=== PATIENT | female | born 1990 | race Caucasian/White ===

== ENCOUNTER 2020-02-10 06:40 | Emergency (ER) | payer MEDICAID ==
[2020-02-10 06:45] VITALS: RESP 18
[2020-02-10] MEDS ORDERED: SODIUM CHLORIDE 0.9% 1,000 ML IV STA (07:11)
[2020-02-10] MEDS ORDERED: SODIUM CHLORIDE 0.9% 1,000 ML IV SCH (07:15)
--- NOTE | 2020-02-10 07:15 | ED ---
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 She reports that she had episode of chest pain today and was feeling lightheaded. She reports that she drank juice and had taken her blood pressure. Patient is 160/100 and then 159/100. She reports that the chest pain seemed to subside somewhat at this time. She does complain of feeling lightheaded. She went some numbness and tingling in bilateral upper extremities. - Related Data Home Medications Medication Instructions Recorded Confirmed No Known Home Medications 02/10/20 02/10/20 Allergies Allergy/AdvReac Type Severity Reaction Status Date / Time No Known Allergies Allergy Verified 02/10/20 08:16 Review of Systems ROS Statement: Those systems with pertinent positive or pertinent negative responses have been documented in the HPI. ROS Other: All systems not noted in ROS Statement are negative. Past Medical History Past Medical History: No Reported History History of Any Multi-Drug Resistant Organisms: None Reported Past Surgical History: No Surgical Hx Reported Past Psychological History: No Psychological Hx Reported Smoking Status: Never smoker Past Alcohol Use History: Rare Past Drug Use History: None Reported General Exam - General Exam Comments Initial Comments: 29 year old female, no distress. Limitations: no limitations General appearance: alert, in no apparent distress Head exam: Present: atraumatic, normocephalic, normal inspection Eye exam: Present: normal appearance, PERRL, EOMI. Absent: scleral icterus, conjunctival injection, periorbital swelling ENT exam: Present: normal exam, mucous membranes moist Neck exam: Present: normal inspection. Absent: tenderness, meningismus, lymphadenopathy Respiratory exam: Present: normal lung sounds bilaterally Cardiovascular Exam: Present: regular rate, normal rhythm, normal heart sounds. Absent: systolic murmur, diastolic murmur, rubs, gallop, clicks GI/Abdominal exam: Present: soft, normal bowel sounds. Absent: distended, tenderness, guarding, rebound, rigid Extremities exam: Present: normal inspection, full ROM, normal capillary refill. Absent: tenderness, pedal edema, joint swelling, calf tenderness Back exam: Present: normal inspection Neurological exam: Present: alert, oriented X3, CN II-XII intact Psychiatric exam: Present: normal affect, normal mood Skin exam: Present: warm, dry, intact, normal color. Absent: rash Course Vital Signs 02/10/20 06:43 Temperature 98.1 F Pulse Rate 98 Respiratory 18 Rate Blood Pressure 146/90 O2 Sat by Pulse 100 Oximetry EKG Findings - EKG Comments: EKG Findings:: EKG performed at 6 7 AM shows sinus rhythm sinus arrhythmia. Normal EKG. Ventricular rate 79 bpm. NH interval is 134 ms. QRS duration is 84 ms. QT QTc is 396/454 ms. Medical Decision Making - Medical Decision Making 29-year-old female presents prescribed today with complaints of episodes of dizziness lightheadedness and occurring chest pain while she was at work today. Patient reports she has been under stress at home. She denies any known history of significant anxiety. Patient was given IV fluids labwork obtained. She has no acute neurological deficits. No murmurs lungs are clear to auscultation. Chest x-ray was reviewed and negative for acute process. Patient's labs reviewed and unremarkable. Including negative troponin and EKG was reviewed and unremarkable. Reevaluation she is resting comfortably in bed, heart rate montiror is NSR. Discussed using protonix and finishing fluid bolus. Disucssed pt to follow up with PCP. - Lab Data Result diagrams: 02/10/20 07:16 02/10/20 07:16 Lab Results 02/10/20 02/10/20 02/10/20 Range/Units 07:16 07:16 07:16 WBC 10.0 (3.8-10.6) k/uL RBC 4.88 (3.80-5.40) m/uL Hgb 15.0 (11.4-16.0) gm/dL Hct 44.9 (34.0-46.0) % MCV 92.1 (80.0-100.0) fL MCH 30.8 (25.0-35.0) pg MCHC 33.4 (31.0-37.0) g/dL RDW 12.5 (11.5-15.5) % Plt Count 393 (150-450) k/uL Neutrophils % 57 % Lymphocytes % 34 % Monocytes % 5 % Eosinophils % 2 % Basophils % 1 % Neutrophils # 5.6 (1.3-7.7) k/uL Lymphocytes # 3.4 (1.0-4.8) k/uL Monocytes # 0.5 (0-1.0) k/uL Eosinophils # 0.2 (0-0.7) k/uL Basophils # 0.1 (0-0.2) k/uL PT 9.9 (9.0-12.0) sec INR 0.9 (<1.2) Sodium (137-145) mmol/L Potassium (3.5-5.1) mmol/L Chloride (98-107) mmol/L Carbon Dioxide (22-30) mmol/L Anion Gap mmol/L BUN (7-17) mg/dL Creatinine (0.52-1.04) mg/dL Est GFR (CKD-EPI)AfAm (>60 ml/min/1.73 sqM) Est GFR (CKD-EPI)NonAf (>60 ml/min/1.73 sqM) Glucose (74-99) mg/dL Calcium (8.4-10.2) mg/dL Total Bilirubin (0.2-1.3) mg/dL AST (14-36) U/L ALT (4-34) U/L Alkaline Phosphatase (38-126) U/L Troponin I (0.000-0.034) ng/mL Total Protein (6.3-8.2) g/dL Albumin (3.5-5.0) g/dL Urine Color Yellow Urine Appearance Clear (Clear) Urine pH 5.5 (5.0-8.0) Ur Specific Grant 1.023 (1.001-1.035) Urine Protein Negative (Negative) Urine Glucose (UA) Negative (Negative) Urine Ketones Negative (Negative) Urine Blood Negative (Negative) Urine Nitrite Negative (Negative) Urine Bilirubin Negative (Negative) Urine Urobilinogen <2.0 (<2.0) mg/dL Ur Leukocyte Esterase Moderate H (Negative) Urine RBC 1 (0-5) /hpf Urine WBC 2 (0-5) /hpf Ur Squamous Epith Cells <1 (0-4) /hpf Urine Mucus Rare H (None) /hpf 02/10/20 02/10/20 Range/Units 07:16 07:16 WBC (3.8-10.6) k/uL RBC (3.80-5.40) m/uL Hgb (11.4-16.0) gm/dL Hct (34.0-46.0) % MCV (80.0-100.0) fL MCH (25.0-35.0) pg MCHC (31.0-37.0) g/dL RDW (11.5-15.5) % Plt Count (150-450) k/uL Neutrophils % % Lymphocytes % % Monocytes % % Eosinophils % % Basophils % % Neutrophils # (1.3-7.7) k/uL Lymphocytes # (1.0-4.8) k/uL Monocytes # (0-1.0) k/uL Eosinophils # (0-0.7) k/uL Basophils # (0-0.2) k/uL PT (9.0-12.0) sec INR (<1.2) Sodium 139 (137-145) mmol/L Potassium 3.6 (3.5-5.1) mmol/L Chloride 105 (98-107) mmol/L Carbon Dioxide 24 (22-30) mmol/L Anion Gap 10 mmol/L BUN 18 H (7-17) mg/dL Creatinine 0.79 (0.52-1.04) mg/dL Est GFR (CKD-EPI)AfAm >90 (>60 ml/min/1.73 sqM) Est GFR (CKD-EPI)NonAf >90 (>60 ml/min/1.73 sqM) Glucose 118 H (74-99) mg/dL Calcium 9.6 (8.4-10.2) mg/dL Total Bilirubin 0.6 (0.2-1.3) mg/dL AST 32 (14-36) U/L ALT 31 (4-34) U/L Alkaline Phosphatase 71 (38-126) U/L Troponin I <0.012 (0.000-0.034) ng/mL Total Protein 7.8 (6.3-8.2) g/dL Albumin 4.7 (3.5-5.0) g/dL Urine Color Urine Appearance (Clear) Urine pH (5.0-8.0) Ur Specific Grant (1.001-1.035) Urine Protein (Negative) Urine Glucose (UA) (Negative) Urine Ketones (Negative) Urine Blood (Negative) Urine Nitrite (Negative) Urine Bilirubin (Negative) Urine Urobilinogen (<2.0) mg/dL Ur Leukocyte Esterase (Negative) Urine RBC (0-5) /hpf Urine WBC (0-5) /hpf Ur Squamous Epith Cells (0-4) /hpf Urine Mucus (None) /hpf - Radiology Data Radiology results: report reviewed Chest x-ray is negative for any acute cardio pulmonary process. Disposition Clinical Impression: Lightheaded, Atypical chest pain Disposition: HOME SELF-CARE Condition: Good Instructions (If sedation given, give patient instructions): Dizziness (ED) Additional Instructions: Rest Patient to drink plenty of fluids. Follow-up with primary care doctor. Return to emergency department if any alarming signs or symptoms occur. Is patient prescribed a controlled substance at d/c from ED?: No Referrals: None,Stated [Primary Care Provider] - 1-2 days Time of Disposition: 08:31
[2020-02-10 07:33] LABS: Basophils # (A) 0.1 k/uL (0-0.2); Basophils % (A) 1 %; Eosinophils # (A) 0.2 k/uL (0-0.7); Eosinophils % (A) 2 %; HCT 44.9 % (34.0-46.0); Lymphocytes # (A) 3.4 k/uL (1.0-4.8); Lymphocytes % (A) 34 %; MCH 30.8 pg (25.0-35.0); MCHC 33.4 g/dL (31.0-37.0); MCV 92.1 fL (80.0-100.0); Mean Platelet Volume 6.6; Monocytes # (A) 0.5 k/uL (0-1.0); Monocytes % (A) 5 %; Neutrophils # (A) 5.6 k/uL (1.3-7.7); Neutrophils % (A) 57 %; Platelet Count 393 k/uL (150-450); RBC 4.88 m/uL (3.80-5.40); RDW 12.5 % (11.5-15.5)
[2020-02-10 07:39] LABS: Appearance,Urine Clear (Clear); Bilirubin,Urine Negative (Negative); Blood,Urine Negative (Negative); Color,Urine Yellow; Glucose,Urine (UA) Negative (Negative); Ketones,Urine Negative (Negative); Leukocyte Esterase,Urine Moderate (Negative); Mucus,Urine Rare /hpf; Nitrite,Urine Negative (Negative); PH, Urine 5.5 (5.0-8.0); Protein,Urine Negative (Negative); RBC,Urine 1 /hpf (0-5); Specific Gravity,Urine 1.023 (1.001-1.035); Squamous Epithelial Cell,Urine <1 /hpf (0-4); Urobilinogen,Urine <2.0 mg/dL (<2.0); WBC,Urine 2 /hpf (0-5)
[2020-02-10 07:42] LABS: ALT 31 U/L (4-34); AST 32 U/L (14-36); African American GFR (CKD) >90 (>60 ml/min/1.73 sqM); Albumin 4.7 g/dL (3.5-5.0); Alkaline Phosphatase 71 U/L (38-126); Anion Gap 10 mmol/L; Blood Urea Nitrogen 18 mg/dL (7-17); Calcium 9.6 mg/dL (8.4-10.2); Carbon Dioxide 24 mmol/L (22-30); Chloride 105 mmol/L (98-107); Glucose 118 mg/dL (74-99); Non-African American GFR(CKD) >90 (>60 ml/min/1.73 sqM); Potassium 3.6 mmol/L (3.5-5.1); Sodium 139 mmol/L (137-145); Total Bilirubin 0.6 mg/dL (0.2-1.3); Total Protein 7.8 g/dL (6.3-8.2)
[2020-02-10 07:44] LABS: INR 0.9 (<1.2); Prothrombin Time 9.9 sec (9.0-12.0)
--- NOTE | 2020-02-10 08:19 | XR ---
EXAMINATION TYPE: XR chest 2V DATE OF EXAM: 02/10/2020 COMPARISON: None HISTORY: 29-year-old female with chest pain and hypertension TECHNIQUE: PA and lateral views FINDINGS: The cardiomediastinal silhouette, aorta, and pulmonary vasculature are within normal limits. Some mil d strandy atelectasis in the lower lungs. No consolidation or pleural effusion. IMPRESSION: No acute cardiopulmonary process.
[2020-02-10] MEDS ORDERED: PANTOPRAZOLE 40 MG/10 ML VIAL IVP STA (08:26)
[2020-02-10 09:34] VITALS: BP 112/68; PULSE 68; TEMP 98.3
== END 2020-02-10 09:33 | disposition home or self-care (01) ==
LOC: EC 06:40
DX: R07.89 Other chest pain (principal); R42 Dizziness and giddiness
CPT/HCPCS: 36415; 93005; 80053; 84484; 85025; 85610; 81001; 71046; 99284; 96374; 96361 ×2; C9113

== ENCOUNTER → 2020-08-11 | Outpatient (CLI) | payer MEDICAID | LOC: EC 16:18 | PROVIDERS: ATTEND Physician Assistant Medical | DX: Z20.822 Contact with and (suspected) exposure to COVID-19 (principal) | CPT/HCPCS: 87635 ==

== ENCOUNTER → 2020-08-12 | Outpatient (CLI) | payer MEDICAID | DX: Z53.9 Procedure and treatment not carried out, unspecified reason (principal) ==

== ENCOUNTER → 2021-01-25 | Outpatient (CLI) | payer MEDICAID, OTHER | END | disposition home or self-care (01) | LOC: LABWHC1 15:33 | PROVIDERS: ATTEND Emergency Medicine | DX: Z20.822 Contact with and (suspected) exposure to COVID-19 (principal) | CPT/HCPCS: 87635 ==

== ENCOUNTER → 2021-06-25 | Outpatient (CLI) | payer MEDICAID ==
--- NOTE | 2021-06-25 11:15 | US ---
EXAMINATION TYPE: US mass soft tissue chest/back DATE OF EXAM: 06/25/2021 COMPARISON: NONE CLINICAL HISTORY: R22.2 SWELLING, MASS AND LUMP TRUNK. palpable area on patients back to the right of spine, is starting to hurt Soft tissue scan of palpable shows 4.3 x 4.2 x 0.9cm, soft, mobile, non vascular lump, probable lipom a IMPRESSION: Probable lipoma. Correlate clinically.
== END | disposition home or self-care (01) ==
LOC: RADUSWWP 10:31
PROVIDERS: ATTEND Internal Medicine Geriatric Medicine
DX: R22.2 Localized swelling, mass and lump, trunk (principal)